=== PATIENT | female | born 1985 | race American Indian/Alaskan Native ===

== ENCOUNTER 2017-12-12 14:02 | Emergency (ER) | payer MEDICAID ==
[2017-12-12] MEDS ORDERED: NACL 0.9% 1000 ML 1,000 ML IV ONE ×2 (14:25→15:50)
--- NOTE | 2017-12-12 14:56 | Emergency Department Report ---
ED Abdominal Pain HPI - General Chief Complaint: Abdominal Pain Stated Complaint: STOMACH PAIN Time Seen by Provider: 12/12/17 14:52 Source: patient Mode of arrival: Ambulatory Limitations: No Limitations - History of Present Illness MD Complaint: abdominal pain -: days(s) Location: LLQ, suprapubic Radiation: none Migration to: no migration Severity: moderate Consistency: intermittent Worsens With: nothing Associated Symptoms: denies other symptoms - Related Data LMP (females 10-50): 1 month Previous Rx's Medication Instructions Recorded Last Taken Type Ciprofloxacin HCl [Cipro] 500 mg PO BID #20 tablet 12/12/17 Unknown Rx Dicyclomine [Bentyl] 10 mg PO QID PRN #12 capsule 12/12/17 Unknown Rx metroNIDAZOLE [Flagyl] 500 mg PO Q12HR #14 tab 12/12/17 Unknown Rx Allergies Allergy/AdvReac Type Severity Reaction Status Date / Time No Known Allergies Allergy Verified 12/12/17 15:08 ED Review of Systems ROS: Stated complaint: STOMACH PAIN Other details as noted in HPI Comment: All other systems reviewed and negative Constitutional: chills. denies: fever Respiratory: no symptoms reported Cardiovascular: denies: chest pain Endocrine: denies: excessive sweating, flushing, intolerance to cold, intolerance to heat Gastrointestinal: abdominal pain, other (bm yest norm). denies: nausea, vomiting, diarrhea, constipation, hematemesis Genitourinary: denies: urgency, dysuria Musculoskeletal: denies: back pain Skin: denies: rash, lesions Neurological: denies: headache, weakness Psychiatric: denies: anxiety, depression Hematological/Lymphatic: denies: easy bleeding ED Past Medical Hx - Past Medical History Previous Medical History?: No - Surgical History Hx Cholecystectomy: Yes Additional Surgical History: tubal ligation - Social History Smoking Status: Current Some Day Smoker Substance Use Type: None - Medications Home Medications: Home Medications Medication Instructions Recorded Confirmed Last Taken Type Ciprofloxacin HCl [Cipro] 500 mg PO BID #20 tablet 12/12/17 Unknown Rx Dicyclomine [Bentyl] 10 mg PO QID PRN #12 capsule 12/12/17 Unknown Rx metroNIDAZOLE [Flagyl] 500 mg PO Q12HR #14 tab 12/12/17 Unknown Rx ED Physical Exam - General Limitations: No Limitations General appearance: alert, in no apparent distress - Head Head exam: Present: atraumatic - Eye Eye exam: Present: normal appearance, PERRL Pupils: Present: normal accommodation - ENT ENT exam: Present: normal exam, mucous membranes moist - Neck Neck exam: Present: normal inspection - Respiratory Respiratory exam: Present: normal lung sounds bilaterally - Cardiovascular Cardiovascular Exam: Present: regular rate, tachycardia - GI/Abdominal GI/Abdominal exam: Present: soft, tenderness, normal bowel sounds. Absent: distended, guarding, rebound, rigid, diminished bowel sounds, hyperactive bowel sounds, hypoactive bowel sounds, organomegaly, mass, bruit, pulsatile mass, hernia - Rectal Rectal exam: Present: deferred - Extremities Exam Extremities exam: Present: normal inspection - Back Exam Back exam: Present: normal inspection - Neurological Exam Neurological exam: Present: alert, oriented X3, CN II-XII intact, normal gait, abnormal gait - Psychiatric Psychiatric exam: Present: normal affect, normal mood - Skin Skin exam: Present: warm, dry, intact, normal color. Absent: rash ED Course Vital Signs 12/12/17 12/12/17 14:21 15:02 Temperature 99.6 F 100.4 F H Pulse Rate 103 H 98 H Respiratory 20 Rate Blood Pressure 117/69 Blood Pressure 104/78 [Left] O2 Sat by Pulse 97 Oximetry - Reevaluation(s) Reevaluation #1: 12/12/17 17:45 examined no cough no urti no n/v/d normal bm yest- no blood no gi hx no dysuria pain suprapub and to l tender on palp taking po fever noted treated with tylenol and fluids lactate n anbx in er ct scan Reevaluation #2: 12/12/17 17:46 ct noted and discussed w taking po will dc with flagyl and cipro return prn follow up info provided VSS NAD on dc Reevaluation #3: 12/12/17 18:01 improved taking po dc home ED Medical Decision Making - Lab Data Result diagrams: 12/12/17 14:36 12/12/17 14:36 - Radiology Data Radiology results: report reviewed, image reviewed - Medical Decision Making fever wbc lactate n responded to tx ct noted reliable for follow up - Differential Diagnosis uti v bowel etiology of pain Critical care attestation.: If time is entered above; I have spent that time in minutes in the direct care of this critically ill patient, excluding procedure time. ED Disposition Clinical Impression: Abdominal pain, Diverticulitis, Adrenal mass, left Disposition: DC-01 TO HOME OR SELFCARE Is pt being admited?: No Does the pt Need Aspirin: No Condition: Stable Instructions: Diverticulitis (ED), Fever in Adults (ED) Additional Instructions: MOTRIN OR TYLENOL FOR PAIN OR FEVER MEDS ORDERED TODAY RETURN IF WORSENS HYDRATE WELL BLAND DIET FOR 24 HOURS AND ADVANCE TOLERATED. FOLLOW UP WITH PCP AND GI OMAIRA DO NOT DRINK WITH FLAGYL Prescriptions: Ciprofloxacin HCl [Cipro] 500 mg PO BID #20 tablet Dicyclomine [Bentyl] 10 mg PO QID PRN #12 capsule PRN Reason: Pain , Severe (7-10) metroNIDAZOLE [Flagyl] 500 mg PO Q12HR #14 tab Referrals: PRIMARY CAREMD [Primary Care Provider] - 3-5 Days DALTON JONES MD [Staff Physician] - 3-5 Days ENRIQUE OAKLEY [Referring] - 3-5 Days Time of Disposition: 17:33
[2017-12-12 15:01] LABS: Basophils % (Auto) 0.3 % (0.0-1.8); Eosinophils # (Auto) 0.1 K/mm3 (0.0-0.4); Eosinophils % (Auto) 0.6 % (0.0-4.3); Hematocrit 35.2 % (30.3-42.9); Hemoglobin 11.8 gm/dl (10.1-14.3); Lymphocytes # (Auto) 1.8 K/mm3 (1.2-5.4); Lymphocytes % (Auto) 12.2 % (13.4-35.0); Mean Corpuscular HGB Conc 33 % (30-34); Mean Corpuscular Hemoglobin 28 pg (28-32); Mean Corpuscular Volume 84 fl (79-97); Monocytes # (Auto) 1.2 K/mm3 (0.0-0.8); Monocytes % (Auto) 8.1 % (0.0-7.3); Platelet Count 246 K/mm3 (140-440); Red Blood Count 4.21 M/mm3 (3.65-5.03); Red Cell Distribution Width 14.9 % (13.2-15.2)
[2017-12-12] MEDS ORDERED: MOTRIN PO ONE (15:02)
[2017-12-12 15:19] LABS: Alanine Aminotransferase 34 units/L (7-56); BUN/Creatinine Ratio 13; Blood Urea Nitrogen 8 mg/dL (7-17); Calcium 9.4 mg/dL (8.4-10.2); Hemolysis Index 0; Lipase 17 units/L (13-60)
[2017-12-12 15:36] LABS: Bacteria,Urine 1+ /HPF (Negative); Bilirubin,Urine NEG (Negative); Blood,Urine NEG (Negative); Color,Urine Amber (Yellow); Mucus,Urine FEW /HPF; Protein,Urine <15 mg/dL mg/dL (Negative); Urobilinogen,Urine < 2.0 mg/dL (<2.0)
[2017-12-12 15:37] LABS: HCG Qualitative,Urine Negative (Negative)
[2017-12-12] MEDS ORDERED: UNASYN/NS 3 GM/100 ML 3 GM/100 ML BAG IV ONE (16:00)
--- NOTE | 2017-12-12 17:20 | Cat Scan Report ---
FINAL REPORT EXAM: CT ABDOMEN PELVIS W CON HISTORY: mid and r lq pain w fever and wbc 14 TECHNIQUE: Following IV administration of 100 cc of Omnipaque 300 axial helical imaging was performed through the abdomen and pelvis with sagittal and coronal reformatted images obtained. Delayed axial helical imaging was also performed through the abdomen and pelvis. Comparison: None FINDINGS: The lung bases are without infiltrate, pneumothorax or pleural fluid collection. The heart appears to be enlarged. There is evidence of fatty infiltration/steatosis of the liver. There is evidence of previous cholecystectomy. The spleen, pancreas and kidneys are unremarkable in appearance. There appears to be an approximately 1.6 centimeter mass in the left adrenal gland. The Hounsfield units are not definitive for an adenoma on this post-contrast only study. The bowel is normal caliber. There is increased thickness of the sigmoid colon wall with moderate pericolic inflammatory change and diverticula. This is most consistent with the appearance of diverticulitis. There appears to be a small amount of fluid in the left paracolic gutter and a small amount of free fluid in the pelvis. There is no evidence of pneumoperitoneum. There appears to be a vascular clip in the right anterior pelvis. The abdominal aorta is normal caliber. There is no evidence of pathologic intra-abdominal adenopathy by CT size criteria. The urinary bladder is mildly distended and unremarkable in appearance. There is the appearance of an intrauterine device in the region of the cornua of the uterus on the right. The bony structures are unremarkable in appearance. IMPRESSION: 1. Diverticulitis of the sigmoid colon. 2. Small amount of free fluid in the left paracolic gutter and in the pelvis. 3. Previous cholecystectomy. 4. Appearance of intrauterine device in the cornua of the uterus on the right. 5. The heart appears to be enlarged. 6. Approximately 1.6 centimeter left adrenal gland mass that is indeterminate. Comparison with previous imaging studies would be helpful.
[2017-12-12 18:36] VITALS: BP 133/70
== END 2017-12-12 18:54 | disposition home or self-care (01) ==
LOC: ED 14:02
DX: K57.92 Diverticulitis of intestine, part unspecified, without perforation or abscess without bleeding (principal); E27.8 Other specified disorders of adrenal gland; F17.200 Nicotine dependence, unspecified, uncomplicated; Z90.49 Acquired absence of other specified parts of digestive tract; Z90.710 Acquired absence of both cervix and uterus
CPT/HCPCS: 36415; 74177; 80053; 81001; 81025; 82140; 83690; 85025; 96365; 99284; J0295; J7030; Q9967